=== PATIENT | male | born 1935 | race Caucasian/White ===

== ENCOUNTER → 2018-10-14 | Outpatient (CLI) | payer MEDICARE, OTHER ==
[2018-10-14 12:05] LABS: Source, Urine Clean Catch
[2018-10-14 12:56] LABS: Bilirubin, Urine Neg (Neg); Blood, Urine 2+ (Neg); Glucose Qualitative, Urine Neg (Neg); Ketones, Urine Neg (Neg); Leukocyte Esterase, Urine 2+ (Neg); Nitrite, Urine Neg (Neg); Protein, Urine 2+ (Neg); Urobilinogen, Urine NORM (Normal)
[2018-10-14 13:54] LABS: Appearance, Urine Hazy (Clear); Color, Urine Yellow (P-Yellow)
[2018-10-14 13:56] LABS: Red Blood Cells, Urine 0-2 /hpf (0-2)
[2018-10-14 13:57] LABS: Bacteria Not Seen /hpf; Calcium Oxalate Crystals Rare /hpf; Mucus Light ({null, 0-Heavy}); Squamous Epithelial Cells Few /hpf (Few)
== END | disposition home or self-care (01) ==
LOC: LAB 12:03 → LAB SHORT 12:03 → EDSTATUS 10-14 09:40 → LAB FUT 10-14 09:40
PROVIDERS: Physician Assistant
DX: N39.0 Urinary tract infection, site not specified (principal); R32 Unspecified urinary incontinence
CPT/HCPCS: 81001; 87086

== ENCOUNTER → 2019-04-22 | Outpatient (CLI) | payer MEDICARE, OTHER ==
[~2019-04-22] MED LIST: ELIQUIS2.5 MG; Erythromycin 2%30 GM; HYDR1TAB94; Metoprolol Tart50 MG; NEOBACHC15; Pravachol40 MG; SELENIUM SULFI120 ML
== END | disposition home or self-care (01) ==
LOC: PLD 11:25 → LAB SHORT 11:25
DX: R68.89 Other general symptoms and signs (principal)
CPT/HCPCS: 88305; 88313

== ENCOUNTER 2019-04-30 08:58 | Day surgery (SDC) | payer MEDICARE, OTHER ==
[~2019-04-30] VITALS: Ht 185.4 cm; Wt 86.4 kg
[2019-04-30] MEDS ORDERED: Pravachol40 MG (09:46)
[2019-04-30] MEDS ORDERED: SELENIUM SULFI120 ML (09:47)
[2019-04-30] MEDS ORDERED: HYDR1TAB94 (09:47)
[2019-04-30] MEDS ORDERED: Metoprolol Tart50 MG (09:48)
[2019-04-30] MEDS ORDERED: Erythromycin 2%30 GM (09:49)
[2019-04-30] MEDS ORDERED: ELIQUIS2.5 MG (09:49)
[2019-04-30] MEDS ORDERED: NEOBACHC15 (09:49)
--- NOTE | 2019-04-30 10:11 | NUR ---
04/30/19 1011 Twaletha,Kary PT TO RESTROOM
== END 2019-04-30 11:30 | disposition home or self-care (01) ==
LOC: ORSCSDS 08:58
PROVIDERS: Internal Medicine Gastroenterology
PROC: 0DBL8ZX Excision of Transverse Colon, Via Natural or Artificial Opening Endoscopic, Diagnostic (ICD-10-PCS; principal; 2019-04-30 10:15)
PROC: 0DBN8ZX Excision of Sigmoid Colon, Via Natural or Artificial Opening Endoscopic, Diagnostic (ICD-10-PCS; principal; 2019-04-30 10:15)
DX: Z12.11 Encounter for screening for malignant neoplasm of colon (principal); D12.2 Benign neoplasm of ascending colon; D12.5 Benign neoplasm of sigmoid colon; K57.30 Diverticulosis of large intestine without perforation or abscess without bleeding; K64.8 Other hemorrhoids; Z86.010 Personal history of colon polyps; I10 Essential (primary) hypertension; I48.91 Unspecified atrial fibrillation; E78.5 Hyperlipidemia, unspecified; N40.0 Benign prostatic hyperplasia without lower urinary tract symptoms; Z79.01 Long term (current) use of anticoagulants; Z79.899 Other long term (current) drug therapy; Z87.891 Personal history of nicotine dependence
CPT/HCPCS: 88305; J2704; J7120

== ENCOUNTER 2019-08-29 13:00 | Emergency (ER) | payer MEDICARE, OTHER ==
[~2019-08-29] VITALS: Ht 185.4 cm; Wt 90.7 kg
== END 2019-08-29 16:52 | disposition home or self-care (01) ==
LOC: ER 13:00
DX: M96.842 Postprocedural seroma of a musculoskeletal structure following a musculoskeletal system procedure (principal); M79.662 Pain in left lower leg; Z79.899 Other long term (current) drug therapy; Z79.891 Long term (current) use of opiate analgesic; Z87.891 Personal history of nicotine dependence
CPT/HCPCS: 73502; 93971; 99284-25

== ENCOUNTER → 2024-03-27 | Outpatient (CLI) | payer MEDICARE, OTHER ==
[~2024-03-27] MED LIST changes: +AMOCLA875 PO; +ELIQUIS5 M3 PO; +HYDR1TAB94 PO; +METO100ER PO
[2024-03-27 13:09] LABS: Source, Urine Clean Catch
[2024-03-27 15:32] LABS: Appearance, Urine Hazy (Clear); Bilirubin, Urine Neg (Neg); Blood, Urine 3+ (Neg); Color, Urine Yellow (P-Yellow); Glucose Qualitative, Urine Neg (Neg); Ketones, Urine Neg (Neg); Leukocyte Esterase, Urine 2+ (Neg); Nitrite, Urine Pos (Neg); Protein, Urine 2+ (Neg); Urobilinogen, Urine NORM (Normal)
[2024-03-27 15:46] LABS: Bacteria Many /hpf; Squamous Epithelial Cells Few /hpf (Few); White Blood Cells, Urine 25-50 /hpf (0-5)
[2024-03-27 15:47] LABS: Renal Epithelial Rare /hpf (0-Rare)
== END | disposition home or self-care (01) ==
LOC: LAB SHORT 13:07 → LAB 13:07 → LAB FUT 03-27 13:05
PROVIDERS: Physician Assistant
DX: R30.0 Dysuria (principal); N39.0 Urinary tract infection, site not specified
CPT/HCPCS: 81001; 87077; 87086; 87186